=== PATIENT | male | born 1985 | race Caucasian/White ===

== ENCOUNTER 2020-10-10 04:52 | Emergency (ER) | payer SELFPAY ==
[2020-10-10] MEDS ORDERED: IBUPROFEN 600 MG TAB PO ONE (05:45)
[2020-10-10] MEDS ORDERED: ACETAMINOPHEN 500 MG TAB PO ONE (05:45)
[2020-10-10 05:57] VITALS: BP 160/95
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
== END 2020-10-10 07:15 | disposition home or self-care (01) ==
LOC: ED 04:52
DX: S43.492A Other sprain of left shoulder joint, initial encounter (principal); M62.830 Muscle spasm of back; Z79.899 Other long term (current) drug therapy; V49.59XA Passenger injured in collision with other motor vehicles in traffic accident, initial encounter; Y92.410 Unspecified street and highway as the place of occurrence of the external cause; Y93.89 Activity, other specified; Y99.8 Other external cause status
CPT/HCPCS: 72070; 99283